=== PATIENT | male | born 1975 | race Caucasian/White ===

== ENCOUNTER 2016-05-02 16:45 | Inpatient (IN) | payer BC, OTHER ==
[~2016-05-02] VITALS: Ht 182.9 cm; Wt 134.4 kg
[~2016-05-02 16:45] MED LIST: ALLERGY RELIEF10 M1 PO; BACTRIM,SEPT1 TABLET PO; BP PO; CARTIA XT120 MG PO; CATAPRES0.1 MG PO; CELEXA40 MG PO; CHOLESTEROL PO; CLINDAMYCIN HC300 MG PO; ENDOCET 5-3251 EACH PO; FOSINOPRIL SODI40 MG PO; HUMIRA40 MG/0.1 SC; HYGROTON25 MG PO; LOPRESSOR25 MG PO; NEXIUM40 MG PO; PERCOCET 5/31 TABLET PO; ULTRAM50 MG PO; ZANTAC150 MG PO
[2016-05-02] MEDS ORDERED: LOPRESSOR50 MG PO (17:17)
[2016-05-02] MEDS ORDERED: ATORVASTATIN CA20 MG PO (17:17)
[2016-05-02] MEDS ORDERED: BACTRIM,SEPT1 TABLET PO (17:17)
[2016-05-02] MEDS ORDERED: AMLODIPINE BESY10 MG PO (17:18)
[2016-05-02] MEDS ORDERED: ZANTAC150 MG PO (17:19)
[2016-05-02 18:17] LABS: MCH 29.5 PG (29.0-34.0); MCHC 33.8 G/DL (30.0-36.0); MCV 87.4 FL (86-99); PLATELET COUNT 256 K/uL (156-360); RBC DIS.WIDTH-CV 13.5 % (11.8-14.6); RBC DIS.WIDTH-SD 43.6 % (39-53); RED BLOOD COUNT 5.15 M/uL (4.00-5.50); WHITE BLOOD COUNT 11.5 K/uL (4.1-10.2)
[2016-05-02 18:28] LABS: CHLORIDE 101 mEq/L (99-109); POTASSIUM 3.3 mEq/L (3.7-5.4); SODIUM 138 mEq/L (136-147)
[2016-05-02 18:30] LABS: GLUCOSE 90 mg/dL (70-99)
[2016-05-02 18:31] LABS: ANION GAP 12 MEQ/L (2-14)
[2016-05-02 18:33] LABS: GFR ESTIMATE (CALCULATED) > 59 mL/min/
[2016-05-02 18:34] LABS: UREA NITROGEN (BUN) 13 mg/dL (9-23)
[2016-05-02] MEDS ORDERED: CHLORTHALIDONE25 MG PO (19:19)
[2016-05-02] MEDS ORDERED: FOSINOPRIL SODI40 MG PO (19:19)
[2016-05-02] MEDS ORDERED: ALEVE220 M2 PO (19:20)
[2016-05-02 23:18] VITALS: BP 131/69
[2016-05-03 01:51] LABS: METH RESISTANT S AUREUS PCR POSITIVE (NEGATIVE)
[2016-05-03 01:57] LABS: PROBE CHECK PASS
[2016-05-03 04:17] VITALS: BP 115/68
[2016-05-03 06:46] LABS: BASOPHIL COUNT 0.1 K/uL (0-0.1); EOSINOPHIL (%) 2.1 % (0-5); EOSINOPHIL COUNT 0.2 K/uL (0-0.3); HEMATOCRIT 41.7 % (38.0-50.0); IMMATURE GRANULOCYTE (%) 0.8 % (0.0-0.7); IMMATURE GRANULOCYTE COUNT 0.1 K/uL; INSTRUMENT ABS NEUTROPHIL CT 5.4 K/uL; LYMPHOCYTE COUNT 2.3 K/uL (1.0-2.8); MCH 29.8 PG (29.0-34.0); MCHC 33.6 G/DL (30.0-36.0); MCV 88.7 FL (86-99); MEAN PLAT.VOLUME 10.2 uM^3 (9.0-12.4); MONOCYTE (%) 9.9 % (3-12); MONOCYTE COUNT 0.9 K/uL (0-0.8); NEUTROPHIL (%) 60.6 % (45-76); NEUTROPHIL COUNT 5.4 K/uL (1.8-6.4); PLATELET COUNT 223 K/uL (156-360); RBC DIS.WIDTH-CV 13.8 % (11.8-14.6); RBC DIS.WIDTH-SD 44.6 % (39-53)
[2016-05-03 07:28] LABS: ANION GAP 8 MEQ/L (2-14); CHLORIDE 102 MEQ/L (99-109); GFR ESTIMATE (CALCULATED) > 59 mL/min/; GLUCOSE 94 mg/dL (70-99); POTASSIUM 3.7 MEQ/L (3.7-5.4); SAMPLE HEMOLYSIS CHECK 0; SAMPLE ICTERIC CHECK 0; SAMPLE LIPEMIA CHECK 0; SODIUM 139 MEQ/L (136-147); UREA NITROGEN (BUN) 11 mg/dL (9-23)
[2016-05-03 08:00] VITALS: BP 136/76
[2016-05-03 11:40] VITALS: BP 115/62
[2016-05-03 15:40] VITALS: BP 127/65
[2016-05-03 19:25] VITALS: BP 138/75
[2016-05-03 23:11] VITALS: BP 134/60
[2016-05-04 04:15] VITALS: BP 105/67
[2016-05-04 07:15] VITALS: BP 121/56
[2016-05-04 07:19] LABS: ANION GAP 8 MEQ/L (2-14); CHLORIDE 100 MEQ/L (99-109); GFR ESTIMATE (CALCULATED) > 59 mL/min/; GLUCOSE 96 mg/dL (70-99); POTASSIUM 3.7 MEQ/L (3.7-5.4); SAMPLE HEMOLYSIS CHECK 0; SAMPLE ICTERIC CHECK 0; SAMPLE LIPEMIA CHECK 0; SODIUM 138 MEQ/L (136-147); UREA NITROGEN (BUN) 11 mg/dL (9-23)
[2016-05-04 07:34] LABS: VANCOMYCIN, TROUGH 9.3 MCG/ML (10-20)
[2016-05-04 12:30] VITALS: BP 117/56
[2016-05-04 16:32] VITALS: BP 119/70
[2016-05-04 19:28] VITALS: BP 122/60
[2016-05-04 23:24] VITALS: BP 96/54
[2016-05-05 03:30] VITALS: BP 106/70
[2016-05-05 08:00] VITALS: BP 129/71
[2016-05-05] MEDS ORDERED: BACTRIM,SEPT1 TABLET PO (08:08)
[2016-05-05 12:00] VITALS: BP 143/87
[2016-05-05 16:00] VITALS: BP 145/65
== END 2016-05-05 20:08 | disposition home or self-care (01) | DRG 603 ==
LOC: EME 16:45 → EDOF 20:34 → 2EAST 20:34
PROVIDERS: Family Medicine; Nurse Practitioner Family; Pediatrics
DX: L03.311 Cellulitis of abdominal wall (principal); L03.116 Cellulitis of left lower limb; Z68.41 Body mass index [BMI] 40.0-44.9, adult; I10 Essential (primary) hypertension; L40.9 Psoriasis, unspecified; E66.01 Morbid (severe) obesity due to excess calories; L02.211 Cutaneous abscess of abdominal wall; E78.5 Hyperlipidemia, unspecified; Z86.14 Personal history of Methicillin resistant Staphylococcus aureus infection; D72.829 Elevated white blood cell count, unspecified; E87.6 Hypokalemia
CPT/HCPCS: 80048; 80202; 85025; 85027; 87040; 87641; 99281; 99284; J1650; J3370; J7030

== ENCOUNTER 2017-07-20 14:09 | Emergency (ER) | payer SELFPAY ==
[~2017-07-20] VITALS: Ht 182.9 cm; Wt 143.5 kg
[~2017-07-20 14:09] MED LIST changes: +ALEVE220 M2 PO; +AMLODIPINE BESY10 MG PO; +ATORVASTATIN CA20 MG PO; +CHLORTHALIDONE25 MG PO; +LOPRESSOR50 MG PO
[2017-07-20 16:31] LABS: HEMATOCRIT 42.1 % (38.0-50.0); HEMOGLOBIN 14.9 G/DL (12.5-16.6); MCH 31.4 PG (29.0-34.0); MCHC 35.4 G/DL (30.0-36.0); MCV 88.6 FL (86-99); PLATELET COUNT 253 K/uL (156-360); RBC DIS.WIDTH-CV 13.4 % (11.8-14.6); RBC DIS.WIDTH-SD 43.9 % (39-53); RED BLOOD COUNT 4.75 M/uL (4.00-5.50); WHITE BLOOD COUNT 11.1 K/uL (4.1-10.2)
[2017-07-20 16:40] LABS: CHLORIDE 100 mEq/L (99-109); POTASSIUM 3.3 mEq/L (3.7-5.4); SODIUM 137 mEq/L (136-147)
[2017-07-20 16:41] LABS: GLUCOSE 122 mg/dL (70-99)
[2017-07-20 16:45] LABS: CREATININE 0.8 mg/dL (0.6-1.3); GFR ESTIMATE (CALCULATED) > 59 mL/min/ (58.99-99999)
[2017-07-20 16:46] LABS: UREA NITROGEN (BUN) 13 mg/dL (9-23)
[2017-07-20] MEDS ORDERED: CLEOCIN150 MG PO (19:55)
[2017-07-20 20:21] VITALS: BP 145/88
== END 2017-07-20 20:30 | disposition home or self-care (01) ==
LOC: EME 14:09
PROVIDERS: Physician Assistant Medical
DX: L03.311 Cellulitis of abdominal wall (principal); Z86.14 Personal history of Methicillin resistant Staphylococcus aureus infection
CPT/HCPCS: 74177; 80048; 85027; 99281; 99284; J7030